=== PATIENT | male | born 1985 | race Caucasian/White ===

== ENCOUNTER 2019-12-13 15:43 | Outpatient (CLI) | payer BC ==
[~2019-12-13] VITALS: Ht 177.8 cm; Wt 75.0 kg
== END 2019-12-13 15:56 | disposition home or self-care (01) ==
LOC: PREOP 15:43
PROVIDERS: ATTEND Otolaryngology Otolaryngology/Facial Plastic Surgery
DX: Z01.818 Encounter for other preprocedural examination (principal)

== ENCOUNTER 2019-12-21 07:19 | Day surgery (SDC) | payer BC ==
[~2019-12-21] VITALS: Ht 177.8 cm; Wt 75.0 kg
[2019-12-21] VITALS (10 sets, daily range): BP systolic 96–133; BP diastolic 58–96
[2019-12-21] MEDS ORDERED: HYDROCORTISONE 100 MG/2 ML (Solu-CORTEF) VIAL IV ONE (07:45)
[2019-12-21] MEDS ORDERED: AMPICILLIN/SULBACTAM INJECTION 1.5 GM in NS (IVPB) 100 ML IV ONE (07:45)
[2019-12-21] MEDS: LACTATED RINGERS 1,000 ML IV PRN ×2 (08:01→10:33)
[2019-12-21 08:18] LABS: BASOPHILS % (AUTO) 0 % (0-10); EOSINOPHILS # (AUTO) 0.2 10^3/uL (0.0-0.3); EOSINOPHILS % (AUTO) 2 % (0-10); HEMATOCRIT 45 % (40-54); HEMOGLOBIN 15.2 G/DL (13.3-17.7); LYMPHOCYTES # (AUTO) 2.8 X 10^3 (1.0-4.0); LYMPHOCYTES % (AUTO) 33 % (12-44); MEAN CORPUSCULAR HEMOGLOBIN 33 PG (25-34); MEAN CORPUSCULAR HGB CONC 34 G/DL (32-36); MEAN CORPUSCULAR VOLUME 96 FL (80-99); MEAN PLATELET VOLUME 10.1 FL (7.4-10.4); MONOCYTES # (AUTO) 0.7 X 10^3 (0.0-1.0); MONOCYTES % (AUTO) 8 % (0-12); NEUTROPHILS # (AUTO) 4.9 X 10^3 (1.8-7.8); NEUTROPHILS % (AUTO) 57 % (42-75); PLATELET COUNT 220 10^3/uL (130-400); WHITE BLOOD COUNT 8.5 10^3/uL (4.3-11.0)
[2019-12-21 08:39] LABS: BUN/CREATININE RATIO 19; CALCIUM 9.2 MG/DL (8.5-10.1); CARBON DIOXIDE 27 MMOL/L (21-32); CHLORIDE 106 MMOL/L (98-107); CREATININE SERUM 1.03 MG/DL (0.60-1.30); GFR ESTIMATED > 60; GLUCOSE 103 MG/DL (70-105); POTASSIUM 4.4 MMOL/L (3.6-5.0); SODIUM 143 MMOL/L (135-145)
--- NOTE | 2019-12-21 08:41 | Progress Note-Pre Operative ---
Pre-Operative Progress Note H&P Reviewed The H&P was reviewed, patient examined and no changes noted. Date Seen by Provider: Dec 21, 2019 Time Seen by Provider: 08:40 Date H&P Reviewed: Dec 21, 2019 Time H&P Reviewed: 08:40 Pre-Operative Diagnosis: Bilat Chronic Sinusitis, Deviatead nasal Septum, Bilat Hyper of Inf turbs PRIMO MUNGUIA MD Dec 21, 2019 08:41
[2019-12-21] MEDS ORDERED: COCAINE HCL 4% 2 ML SYR ONE (08:43)
[2019-12-21] MEDS ORDERED: PHENYLEPHRINE 0.5% NASAL SPR (NEO-SYNEPHRINE) REG ONE (08:43)
[2019-12-21] MEDS ORDERED: LIDOCAINE/EPI 1%-1:100,000 (XYLOCAINE) 20ML ONE (08:43)
[2019-12-21] MEDS ORDERED: BSS 15 ML ONE (08:43)
[2019-12-21] MEDS ORDERED: ONDANSETRON 4 MG/2 ML (SDV) Z0FRAN ONE (08:50)
[2019-12-21] MEDS ORDERED: fentaNYL INJECTION 100 MCG/2 ML AMP ONE (08:50)
[2019-12-21] MEDS ORDERED: proPOfol 200 MG/20 ML (DIPRIVAN) VIAL IV ONE (08:50)
[2019-12-21] MEDS ORDERED: LIDOCAINE PF 2% 5 ML (XYLOCAINE) VIAL ONE (08:50)
[2019-12-21] MEDS ORDERED: SEVOFLURANE (ULTANE) 15 ML INHAL SOLN ONE ×2 (08:50→10:24)
[2019-12-21] MEDS ORDERED: LIDOCAINE JELLY 2% 6 ML SYRINGE ONE (08:50)
[2019-12-21] MEDS ORDERED: DEXAMETHASONE 10 MG/ML (DECADRON) 1 ML VIAL ONE (08:50)
[2019-12-21] MEDS ORDERED: MIDAZOLAM 2 MG/2 ML (VERSED) VIAL ONE (08:51)
[2019-12-21] MEDS ORDERED: NEOSTIGMINE 3 MG/3 ML VIAL ONE (10:20)
[2019-12-21] MEDS ORDERED: GLYCOPYRROLATE 0.2 MG/ML (ROBINUL) 2 ML VIAL ONE (10:20)
[2019-12-21] MEDS ORDERED: D5 1/2 NS W/KCL 20 MEQ/L 1,000 ML IV SCH (10:41)
--- NOTE | 2019-12-21 10:41 | Progress Note-Post Operative ---
Post-Operative Progess Note Surgeon (s)/Site Damage Prevention Technician (s) Surgeon PRIMO MUNGUIA MD Site Damage Prevention Technician n/a Pre-Operative Diagnosis Bilat Chronic Sinusitis, Deviatead nasal Septum, Bilat Hyper of Inf turbs Post-Operative Diagnosis same Post-Op Procedure Note Date of Procedure: Dec 21, 2019 Name of Procedure Performed: Bilat ESS, Nasal Septoplasty, Bilat Red Of Inf Turbs Description & Findings Description and Findings: n/a Anesthesia Type get Estimated Blood Loss minimal Packing dissolvble nasal packing bilat Specimen(s) collected/removed bilat chronic Sinussitis PRIMO MUNGUIA MD Dec 21, 2019 10:40
[2019-12-21] MEDS ORDERED: HYDROcodone/APAP 5 MG/325 MG (LORTAB) TAB PO PRN (10:45)
[2019-12-21] MEDS ORDERED: predniSONE 20 MG TAB PO ONE (10:45)
[2019-12-21] MEDS ORDERED: PROMETHAZINE INJ 25 MG/ML (PHENERGAN) AMP IVP PRN (10:45)
[2019-12-21] MEDS ORDERED: ACETAMINOPHEN 325 MG TABLET PO PRN (10:45)
[2019-12-21] MEDS ORDERED: MEPERIDINE (DEMEROL) INJ 50 MG/ML IVP ONE (11:00)
[2019-12-21] MEDS ORDERED: morphine INJ 10 MG/ML 1ML (SYR OR VIAL) IVP ONE (11:00)
[2019-12-21] MEDS ORDERED: ONDANSETRON 4 MG/2 ML (SDV) Z0FRAN IVP PRN (11:00)
[2019-12-21] MEDS ORDERED: HYDROmorphone 2 MG/ML VIAL (DILAUDID) IV ONE (11:00)
[2019-12-21] MEDS ORDERED: HYDROcodone/APAP 5 MG/325 MG (LORTAB) TAB ONE (11:36)
--- NOTE | 2019-12-21 12:27 | Anesthesia-General Post-Op ---
General Patient Condition Mental Status/LOC: Same as Preop Cardiovascular: Satisfactory Nausea/Vomiting: Absent Respiratory: Satisfactory Pain: Controlled Complications: Absent Post Op Complications Complications None Follow Up Care/Instructions Patient Instructions None needed. Anesthesia/Patient Condition Patient Condition Patient is doing well, no complaints, stable vital signs, no apparent adverse anesthesia problems. No complications reported per nursing. ISIS GARCIA CRNA Dec 21, 2019 12:27
[2019-12-21] MEDS ORDERED: AMOX-355 PO (12:44)
[2019-12-21] MEDS ORDERED: PRD20T PO (12:44)
[2019-12-21] MEDS ORDERED: HYDR-4226 PO (12:44)
[2019-12-21] MEDS ORDERED: predniSONE 20 MG TAB ONE (13:09)
--- OUTSIDE RECORDS SUMMARY | 2019-12-22 23:21 | XMS REPORT | Clinical Summary ---
Author Author Admin, Hadley Rivas Organization [employer] Address Unknown Phone Unavailable Allergies, Adverse Reactions, Alerts Allergy Name Reaction Description Start Date Severity Status Pr ovider No Known Allergies Elsa Barnard MA Conditions or Problems Problem Name Problem Code Onset Date Status Entry Date Provider Comment Standard Description Annotate Sterilization-Male V25.2 Active Evelyn jeffery MD Encounter for sterilization BMI 25-25.9 Active Evelyn An MD Body Mass Index 25.0- 25.9, adult Overweight (BMI 25-29.9) Active Evelyn roe MD Overweight Medication List Medication Instructions Start Date Stop Date Generic Name NDC Status Provider Patient Instruction No Drug Therapy Prescribed - none known did ask Elsa Barnard MA Advance Directives Directive Description Start Date PERMISSION TO SHARE Immunizations Vaccine Administration Date Value Standard Jerry cription influenza immunization (Flu Vax) has been administered 12/07 Done according to patient influenza virus vaccine, unspecified for mulation Vital Signs Date Name Value Unit Range Description blood pressure, diastolic, repeated by physician 83 BP clayton blood pressure, diastolic 83 mm[Hg] BP clayton blood pressure, systolic, repeated by physician 151 BP sys blood pressure, systolic 151 mm[Hg] BP sys height E&M 71 [in_us] Bdy height pulse rate E&M 90 /min Heart rate temperature E&M 97.7 [degF] Body temp erature weight E&M 184.50 [lb_av] Weight Measure d blood pressure, diastolic, repeated by physician 78 BP clayton blood pressure, diastolic 78 mm[Hg] BP clayton blood pressure, systolic, repeated by physician 125 BP sys blood pressure, systolic 125 mm[Hg] BP sys height E&M 71 [in_us] Bdy height pulse rate E&M 71 /min Heart rate temperature E&M 98.3 [degF] Body temp erature weight E&M 184 [lb_av] Weight Measure d Diagnostic Results Date Name Value Unit Range Description Office Visit: CN-Vasectomy - PM sexually transmitted disease no risk noted Encounters Code Encounter Date Provider Facility CPT-40717 Level 3 New Patient 13:28:16 IT ASSOCIATE Evelyn turner MD [facility] Procedures Code Procedure Name Date Entry Date Standard Desc ription CPT-86184 Vasectomy 12:54:28 CDT CPT-48541 First Vx - Ix admin via ID I M or jet injects without counseling by physician 16:15:51 IT ASSOCIATE CPT-78745 Flulaval Intramuscular Injectable 16:15:51 IT ASSOCIATE
--- OUTSIDE RECORDS SUMMARY | 2019-12-22 23:21 | XMS REPORT | Clinical Summary ---
Author Author Admin, Hadley Rivas Organization [employer] Address Unknown Phone Unavailable Allergies, Adverse Reactions, [...] influenza immunization (Flu Vax) has been administered 09/11 Flulaval Quadrivalent (Flu) 10Pk Syringe IM influenza virus vaccine, unspecified formulation influenza immunization (Flu Vax) has been administered [...] Unit Range Description Office Visit: CN-Vasectomy - PMH sexually transmitted disease no risk noted Encounters Code Encounter Date Provider Facility CPT-48069 Level 3 New Patient 13:28:16 OCCUPATIONAL HEALTH NURSING DIRECTOR Evelyn turner MD [facility] Procedures Code Procedure Name Date Entry Date Standard Desc ription CPT-34742 89608 - Immun Admin 1 vac 16:51:15 OCCUPATIONAL HEALTH NURSING DIRECTOR 2018 CPT-77678 Flulaval (Flu) 10PK Syringe IM 16:51:15 OCCUPATIONAL HEALTH NURSING DIRECTOR CPT-06398 Vasectomy 12:54:28 CDT CPT-18058 First Vx - Ix admin via ID I M or jet injects without counseling by physician 16:15:51 OCCUPATIONAL HEALTH NURSING DIRECTOR CPT-99528 Flulaval Intramuscular Injectable 16:15:51 OCCUPATIONAL HEALTH NURSING DIRECTOR
--- OUTSIDE RECORDS SUMMARY | 2019-12-22 23:21 | XMS REPORT | Clinical Summary ---
Author Author Admin, Hadley Rivas Organization [employer] Address Unknown Phone Unavailable Allergies, Adverse Reactions, [...] noted Encounters Code Encounter Date Provider Facility CPT-52059 Level 3 New Patient 13:28:16 LEADER WRITER Evelyn turner MD [facility] Procedures Code Procedure Name Date Entry Date Standard Desc ription CPT-16511 Vasectomy 12:54:28 CDT CPT-34983 First Vx - Ix admin via ID I M or jet injects without counseling by physician 16:15:51 LEADER WRITER CPT-99150 Flulaval Intramuscular Injectable 16:15:51 LEADER WRITER
--- OUTSIDE RECORDS SUMMARY | 2019-12-22 23:21 | XMS REPORT | Clinical Summary ---
Author Author Admin, Hadley Rivas Organization [employer] Address Unknown Phone Unavailable Allergies, Adverse Reactions, Alerts Allergy Name Reaction Description Start Date Severity Status Pr ovider No Known Allergies Elsa Barnard MA Conditions or Problems Problem Name Problem Code Onset Date Status Entry Date Provider Comment Standard Description Annotate Sterilization-Male V25.2 Active Evelyn jefefry MD Encounter for sterilization BMI 25-25.9 Active [...] noted Encounters Code Encounter Date Provider Facility CPT-63067 Level 3 New Patient 13:28:16 ASSOCIATE PROFESSOR OF RADIOLOGY Evelny turner MD [facility] Procedures Code Procedure Name Date Entry Date Standard Desc ription CPT-47841 83976 - Immun Admin 1 vac 16:51:15 ASSOCIATE PROFESSOR OF RADIOLOGY 2018 CPT-73650 Flulaval (Flu) 10PK Syringe IM 16:51:15 ASSOCIATE PROFESSOR OF RADIOLOGY CPT-46049 Vasectomy 12:54:28 CDT CPT-72907 First Vx - Ix admin via ID I M or jet injects without counseling by physician 16:15:51 ASSOCIATE PROFESSOR OF RADIOLOGY CPT-15099 Flulaval Intramuscular Injectable 16:15:51 ASSOCIATE PROFESSOR OF RADIOLOGY
--- OUTSIDE RECORDS SUMMARY | 2019-12-22 23:21 | XMS REPORT ---
Author Author [facility] Medic al Staff, REGINALD LINDER Organization [facility] Address [phone] [place], [place] [id number] Phone [phone] Care Team Providers Care Plate Grainer Apprentice Name Role Phone DENNY KINNEY MD PP [phone] Summary purpose CCDA Sent to [facility] Chief Complaint and Reason for Visit No authorized Reason for Visit (Admitting Diagnosis) is available for this visit . Problem list No authorized problems tracked for continuity of care are available for this vis it. Encounters No authorized problems tracked for encounter diagnoses are available for this vi sit. Medications No medications recorded for this patient visit Allergies, adverse reactions, alerts No allergy information is available for this patient. Immunizations No immunizations recorded for this patient visit Relevant diagnostic tests and/or laboratory data No authorized results are available for this patient visit History of procedures No procedures recorded for this patient visit. Functional status No functional or cognitive status observations are available for this visit. Vital signs No authorized vital signs are available for this visit. Social history No Social History or smoking status observations were recorded for this visit. ( Unknown if ever smoked.) Treatment Plan No treatment plan text is available for this visit. Hospital discharge instructions No discharge instruction text is available for this visit.
--- OUTSIDE RECORDS SUMMARY | 2019-12-22 23:21 | XMS REPORT | Clinical Summary ---
Author Author Admin, Hadley Rivas Organization [facility] Address Unknown Phone Unavailable Allergies, Adverse Reactions, [...] noted Encounters Code Encounter Date Provider Facility CPT-90645 Level 3 New Patient 13:28:16 EYEGLASS FITTER Evelyn turner MD [facility] Procedures Code Procedure Name Date Entry Date Standard Desc ription CPT-36264 Vasectomy 12:54:28 CDT CPT-68189 First Vx - Ix admin via ID I M or jet injects without counseling by physician 16:15:51 EYEGLASS FITTER CPT-93855 Flulaval Intramuscular Injectable 16:15:51 EYEGLASS FITTER
--- OUTSIDE RECORDS SUMMARY | 2019-12-22 23:21 | XMS REPORT | Clinical Summary ---
Author Author Admin, Hadley Rivas Organization [facility] Address Unknown Phone Unavailable Allergies, Adverse Reactions, [...] noted Encounters Code Encounter Date Provider Facility CPT-69244 Level 3 New Patient 13:28:16 MYSQL DATABASE ADMINISTRATOR Evelyn turner MD [facility] Procedures Code Procedure Name Date Entry Date Standard Desc ription CPT-50271 Vasectomy 12:54:28 CDT CPT-06487 First Vx - Ix admin via ID I M or jet injects without counseling by physician 16:15:51 MYSQL DATABASE ADMINISTRATOR CPT-37573 Flulaval Intramuscular Injectable 16:15:51 MYSQL DATABASE ADMINISTRATOR
--- OUTSIDE RECORDS SUMMARY | 2019-12-22 23:22 | XMS REPORT | Clinical Summary ---
Author Author Admin, Hadley Rivas Organization [facility] Address Unknown Phone Unavailable Allergies, Adverse Reactions, Alerts Allergy Name Reaction Description Start Date Severity Status Pr ovider Allergies Unknown Conditions or Problems Problem Name Problem Code Onset Date Status Entry Date Provider Comment Standard Description Annotate Problems Unknown Active Medication List Medication Instructions Start Date Stop Date Generic Name NDC Status Provider Patient Instruction Drug Treatment Unknown - unknown Procedures Code Procedure Name Date Entry Date Standard Desc ription CPT-66761 First Vx - Ix admin via ID I M or jet injects without counseling by physician 16:15:51 DIRECTOR CUSTOM CPT-05091 Flulaval Intramuscular Injectable 16:15:51 DIRECTOR CUSTOM
--- OUTSIDE RECORDS SUMMARY | 2019-12-22 23:22 | XMS REPORT | Clinical Summary ---
Author Author Admin, Hadley Rivas Organization [employer] Address Unknown Phone Unavailable Allergies, Adverse Reactions, Alerts Allergy Name Reaction Description Start Date Severity Status Pr ovider No Known Allergies Kinza Elder Conditions or Problems Problem Name Problem Code Onset Date Status Entry Date Provider Comment Standard Description Annotate Sterilization-Male V25.2 Active Evelyn jeffery MD Encounter for sterilization Medication List Medication Instructions Start Date Stop Date Generic Name NDC Status Provider Patient Instruction No Drug Therapy Prescribed - none known did ask Kinza Elder Immunizations Vaccine Administration Date Value Standard Jerry cription influenza immunization (Flu Vax) has been administered 12/07 Done according to patient influenza virus vaccine, unspecified for mulation Vital Signs Date Name Value Unit Range Description blood pressure, diastolic, repeated by physician 78 [...] noted Encounters Code Encounter Date Provider Facility CPT-44545 Level 3 New Patient 13:28:16 PETROLEUM ENGINEERING PROFESSOR Evelyn turner MD [facility] Procedures Code Procedure Name Date Entry Date Standard Desc ription CPT-45623 First Vx - Ix admin via ID I M or jet injects without counseling by physician 16:15:51 PETROLEUM ENGINEERING PROFESSOR CPT-76689 Flulaval Intramuscular Injectable 16:15:51 PETROLEUM ENGINEERING PROFESSOR
--- OUTSIDE RECORDS SUMMARY | 2019-12-22 23:22 | XMS REPORT | Continuity of Care Document ---
Author Organization Unknown Address Unknown Phone Unavailable Allergies Active Description Code Type Severity Reaction Onset Reported/Identified Relationship to Patient Clinical Status Yes No Known Drug Allergies [id number] Drug Allergy Unknown N/A 12/13/2019 Medications There is no data. Problems Date Dx Coded Attending Type Code Diagnosis Diagnosed By 12/07/2018 Juve BOWMAN, Evelyn Hammer3 0.2 Sterilization-Male 12/22/2018 Evelyn An MD Z68.25 BMI 25-25.9 12/13/2019 EZRA BOWMAN, PRIMO P Ot Z01.818 ENCOUNTER FOR OTHER PREPROCEDURAL EXAMIN 12/13/2019 EZRA BOWMAN, PRIMO P Ot Z01.818 ENCOUNTER FOR OTHER PREPROCEDURAL EXAMIN 12/13/2019 EZRA BOWMAN, PRIMO P Ot Z01.818 ENCOUNTER FOR OTHER PREPROCEDURAL EXAMIN 12/13/2019 EZRA BOWMAN, PRIMO P Ot Z01.818 ENCOUNTER FOR OTHER PREPROCEDURAL EXAMIN 12/19/2019 EZRA BOWMAN, PRIMO P Ot Z01.818 ENCOUNTER FOR OTHER PREPROCEDURAL EXAMIN Procedures There is no data. Results Test Result Range Complete blood count (CBC) with automate d white blood cell (WBC) differential - 12/21/19 08:00 Blood leukocytes automated count (number/volume) 8.5 10*3/uL 4.3-11.0 Blood erythrocytes automated count (number/volume) 4.66 10*6/uL 4.35-5.85 Venous blood hemoglobin measurement (mass/volume) 15.2 g/dL 13.3-17.7 Blood hematocrit (volume fraction) 45 % 40-54 Automated erythrocyte mean corpuscular volume 96 [ foz_us] 80-99 Automated erythrocyte mean corpuscular h emoglobin (mass per erythrocyte) 33 pg 25-34 Automated erythrocyte mean corpuscular h emoglobin concentration measurement (mass/volume) 34 g/dL 32-36 Automated erythrocyte distribution width ratio 13. 0 % 10.0- 14.5 Automated blood platelet count (count/volume) 220 10*3/uL 130-400 Automated blood platelet mean volume measurement 10.1 [foz_us] 7.4-10.4 Automated blood neutrophils/100 leukocytes 57 % 42-75 Automated blood lymphocytes/100 leukocytes 33 % 12-44 Blood monocytes/100 leukocytes 8 % 0-12 Automated blood eosinophils/100 leukocytes 2 % 0-10 Automated blood basophils/100 leukocytes 0 % 0-10 Blood neutrophils automated count (number/volume) 4.9 10*3 1.8-7.8 Blood lymphocytes automated count (number/volume) 2.8 10*3 1.0-4.0 Blood monocytes automated count (number/volume) 0. 7 10*3 0.0-1.0 Automated eosinophil count 0.2 10*3/uL 0 .0-0.3 Automated blood basophil count (count/volume) 0.0 10*3/uL 0.0-0.1 Whole blood basic metabolic panel - 12/08 12/27 08:00 Serum or plasma sodium measurement (moles/volume) 143 mmol/L 135-145 Serum or plasma potassium measurement (moles/volume) 4.4 mmol/L 3.6-5.0 Serum or plasma chloride measurement (moles/volume) 106 mmol/L 98-107 Carbon dioxide 27 mmol/L 21-32 Serum or plasma anion gap determination (moles/volume) 10 mmol/L 5-14 Serum or plasma urea nitrogen measurement (mass/volume ) 20 mg/dL 7-18 Serum or plasma creatinine measurement (mass/volume) 1.03 mg/dL 0.60-1.30 Serum or plasma urea nitrogen/creatinine mass ratio 19 NRG Serum or plasma creatinine measurement w ith calculation of estimated glomerular filtration rate > NRG Serum or plasma glucose measurement (mass/volume) 103 mg/dL 70-105 Serum or plasma calcium measurement (mass/volume) 9.2 mg/dL 8.5-10.1 Methicillin resistant Staphylococcus aur eus (MRSA) screening culture - 12/21/19 08:00 Methicillin resistant Staphylococcus aureus (MRSA) scr eening culture NEG NRG Encounters ACCT No. Visit Date/Time Discharge Status Pt. Type Provider Facility Loc./Unit Complaint [id number] 05/05/2019 00:43:44 ACT Document Registration [id number] 09/11/2019 15:38:01 ACT Unknown Evelyn An MD [id number] 12/13/2019 15:43:00 020 15:56:00 DIS Outpatient EZRA BOWMAN, PRIMO Malcolm [facility] PREOP BILATERAL ESS, RED. TUR BINATES, SEPTOPLASTY [id number] 12/21/2019 07:19:[address] Outpatient EZRA BOWMAN, PRIMO Malcolm [facility] JAI. CHRONIC SINUSITIS, MODE RATELY DEV. SEPTUM, [id number] 10/11/2019 14:23:22 10/11/2019 23:59: 59 CLS Outpatient Jessie Santamaria [id number] 08/11/2019 14:37:38 08/11/2019 23:59: 59 CLS Outpatient Jessie Santamaria
--- OUTSIDE RECORDS SUMMARY | 2019-12-22 23:22 | XMS REPORT | Clinical Summary ---
Author Author Admin, Hadley Rivas Organization [employer] Address Unknown Phone Unavailable Allergies, Adverse Reactions, [...] none known did ask Elsa Barnard MA Immunizations Vaccine Administration Date Value Standard Jerry [...] noted Encounters Code Encounter Date Provider Facility CPT-96181 Level 3 New Patient 13:28:16 METAL PRODUCTS VIEWER J Charles turner MD [facility] Procedures Code Procedure Name Date Entry Date Standard Desc ription CPT-85748 Vasectomy 12:54:28 CDT CPT-00184 First Vx - Ix admin via ID I M or jet injects without counseling by physician 16:15:51 METAL PRODUCTS VIEWER CPT-38088 Flulaval Intramuscular Injectable 16:15:51 METAL PRODUCTS VIEWER
--- OUTSIDE RECORDS SUMMARY | 2019-12-22 23:22 | XMS REPORT | Clinical Summary ---
Author Author Admin, Hadley Rivas Organization [facility] Address Unknown Phone Unavailable Allergies, Adverse Reactions, [...] Name Date Entry Date Standard Desc ription CPT-08617 First Vx - Ix admin via ID I M or jet injects without counseling by physician 16:15:51 EFFICIENCY MINER BLASTING CPT-34059 Flulaval Intramuscular Injectable 16:15:51 EFFICIENCY MINER BLASTING
--- OUTSIDE RECORDS SUMMARY | 2019-12-22 23:22 | XMS REPORT | Clinical Summary ---
Author Author Admin, Hadley Rivas Organization [employer] Address Unknown Phone Unavailable Allergies, Adverse Reactions, [...] noted Encounters Code Encounter Date Provider Facility CPT-05472 Level 3 New Patient 13:28:16 MANAGER RENEWABLE ENERGY Evelyn turner MD [facility] Procedures Code Procedure Name Date Entry Date Standard Desc ription CPT-83931 First Vx - Ix admin via ID I M or jet injects without counseling by physician 16:15:51 MANAGER RENEWABLE ENERGY CPT-82875 Flulaval Intramuscular Injectable 16:15:51 MANAGER RENEWABLE ENERGY
--- OUTSIDE RECORDS SUMMARY | 2019-12-22 23:22 | XMS REPORT | Clinical Summary ---
Author Author Admin, Hadley Rivas Organization [employer] Address Unknown Phone Unavailable Allergies, Adverse Reactions, [...] noted Encounters Code Encounter Date Provider Facility CPT-10783 Level 3 New Patient 13:28:16 DIRECTOR EPIDEMIOLOGY J Charles turner MD [facility] Procedures Code Procedure Name Date Entry Date Standard Desc ription CPT-02320 Vasectomy 12:54:28 CDT CPT-47592 First Vx - Ix admin via ID I M or jet injects without counseling by physician 16:15:51 DIRECTOR EPIDEMIOLOGY CPT-39328 Flulaval Intramuscular Injectable 16:15:51 DIRECTOR EPIDEMIOLOGY
--- OUTSIDE RECORDS SUMMARY | 2019-12-22 23:22 | XMS REPORT | Clinical Summary ---
Author Author Admin, Hadley Rivas Organization [employer] Address Unknown Phone Unavailable Allergies, Adverse Reactions, [...] noted Encounters Code Encounter Date Provider Facility CPT-60915 Level 3 New Patient 13:28:16 LINOTYPE MECHANIC J Charles turner MD [facility] Procedures Code Procedure Name Date Entry Date Standard Desc ription CPT-35982 Vasectomy 12:54:28 CDT CPT-20707 First Vx - Ix admin via ID I M or jet injects without counseling by physician 16:15:51 LINOTYPE MECHANIC CPT-58478 Flulaval Intramuscular Injectable 16:15:51 LINOTYPE MECHANIC
--- OUTSIDE RECORDS SUMMARY | 2019-12-22 23:22 | XMS REPORT | Clinical Summary ---
Author Author Admin, Hadley Rivas Organization [employer] Address Unknown Phone Unavailable Allergies, Adverse Reactions, [...] noted Encounters Code Encounter Date Provider Facility CPT-64600 Level 3 New Patient 13:28:16 RAILROAD CARMAN Evelyn turner MD [facility] Procedures Code Procedure Name Date Entry Date Standard Desc ription CPT-15927 First Vx - Ix admin via ID I M or jet injects without counseling by physician 16:15:51 RAILROAD CARMAN CPT-68587 Flulaval Intramuscular Injectable 16:15:51 RAILROAD CARMAN
== END 2019-12-21 13:08 | disposition home or self-care (01) ==
LOC: SDC 07:19
PROVIDERS: ATTEND Otolaryngology Otolaryngology/Facial Plastic Surgery
DX: J32.9 Chronic sinusitis, unspecified (principal); J34.2 Deviated nasal septum; J34.89 Other specified disorders of nose and nasal sinuses; J34.3 Hypertrophy of nasal turbinates; J34.1 Cyst and mucocele of nose and nasal sinus; R09.81 Nasal congestion
CPT/HCPCS: 36415; 80048; 85025; 87081